=== PATIENT | male | born 1975 | race Hispanic/Latino ===

== ENCOUNTER 2024-10-20 22:42 | Emergency (ER) | payer BC ==
[~2024-10-20] VITALS: Ht 182.9 cm; Wt 117.0 kg
[~2024-10-20 22:42] MED LIST: AMOXICILLIN500 MG PO; BUSPAR5 MG PO; CIPRO500 MG OR; CIPROFLOXACN500 MG PO; FLOMAX0.4 M1 PO; KEFLEX500 MG PO; PYRIDIUM200 MG OR; TRAMADOL HCL100 MG PO; TRAMADOL HCL50 MG PO; ULTRAM50 M1 PO; ULTRAM50 MG PO; VICODIN ES1 TAB OR
[2024-10-21 01:58] VITALS: BP 126/91
== END 2024-10-21 01:58 | disposition home or self-care (01) | DRG 153 ==
LOC: ED 22:42
DX: J06.9 Acute upper respiratory infection, unspecified (principal); Z72.0 Tobacco use; Z20.822 Contact with and (suspected) exposure to COVID-19